=== PATIENT | male | born 1970 | race Two or more races ===

== ENCOUNTER 2022-04-02 10:11 | Emergency (ER) | payer BC, SELFPAY ==
[2022-04-02 10:46] VITALS: BP 125/84; PULSE 78; RESP 20; TEMP 36.4; O2SAT 100
--- NOTE | 2022-04-02 11:14 | ED.GENADULT ---
HPI - General Adult General Chief complaint: Upper Respiratory Infection Stated complaint: cough History of Present Illness HPI narrative: Patient is a 51-year-old male who presents to the [facility] via POV for evaluation of upper respiratory symptoms that began 2 days ago. Additionally, he reports sore throat, runny eyes, and dry cough. Symptoms improved with Visine, saltwater gargles, cough syrup. Symptoms worsened at night. Denies known exposure to sick contacts. Patient has a history of allergic rhinitis although allergies are usually more prominent in the springtime. He takes Lacey but only in springtime. Related Data Home Medications Medication Instructions Recorded Confirmed No Home Medications 04/02/22 04/02/22 Allergies Allergy/AdvReac Type Severity Reaction Status Date / Time No Known Allergies Allergy Verified 04/02/22 10:47 Review of Systems Review of Systems: Denies fever, chills, sweats, change in appetite, poor p.o. intake, headaches, sinus problems, rhinorrhea, drooling, difficulty swallowing, voice changes, dizziness, ear problems, abdominal pain, nausea, vomiting, diarrhea, chest pain, Heart palpitations, wheezing, cyanosis, and hemoptysis. PMFSH Comments I have reviewed and agree with the patient's past medical, surgical, social, and family hx as documented by the RN. There is no relevant family history pertinent to the presenting complaint. Exam Narrative: GENERAL: Well-appearing, well-nourished, and in no acute distress. HEAD: Normocephalic, atraumatic. No sinus tenderness or facial swelling appreciated. EYES: PERRLA and EOMI. No evidence of erythema, swelling, or drainage. ENT: Bilateral external ears and ear canals normal. Bilateral TMs are normal.No TM perforation. Nares clear, no rhinorrhea or epistaxis. Bilateral turbinates without erythema/ swelling. Mucous membranes moist and pink. Uvula is midline without erythema and swelling. POSTERIOR PHARYNX IS MARKEDLY ERYTHEMATOUS WITH A MODERATE AMOUNT OF POSTNASAL DRIP APPRECIATED. Breath odor and voice normal. NECK: Supple. No Lymphadenopathy or nuchal rigidity appreciated. CHEST: Bilateral lung alcantar are clear to auscultation. No respiratory distress. No evidence of pleuritic cp upon examination. MILD DRY COUGH APPRECIATED UPON EXAMINATION. HEART: Regular rate and rhythm. No murmur, gallop, or rub heard. EXTREMITIES: Normal range of motion. No edema. SKIN: Warm, dry, no rash. NEURO: No focal deficits. Alert and oriented x3. Course Course Level of Care: Express Care Visit Vital Signs Vital signs: Vital Signs Temperature 97.6 F 04/02/22 10:46 Pulse Rate 78 04/02/22 10:46 Respiratory Rate 20 04/02/22 10:46 Blood Pressure 125/84 04/02/22 10:46 Pulse Oximetry 100 04/02/22 10:46 Oxygen Delivery Room Air 04/02/22 10:46 Temperature 97.6 F 04/02/22 10:46 Pulse Rate 78 04/02/22 10:46 Respiratory Rate 20 04/02/22 10:46 Blood Pressure 125/84 04/02/22 10:46 Pulse Oximetry 100 04/02/22 10:46 Oxygen Delivery Room Air 04/02/22 10:46 Medical Decision Making Differential Diagnosis Differential Diagnosis: allergic rhinitis, ABRS, acute viral sinusitis, strep pharyngitis, nasopharyngitis, bronchitis, pneumonia, AOM, otitis externa, viral URI, influenza, covid-19 Vital Signs Vital Signs: Vital Signs Temperature 97.6 F 04/02/22 10:46 Pulse Rate 78 04/02/22 10:46 Respiratory Rate 20 04/02/22 10:46 Blood Pressure 125/84 04/02/22 10:46 Pulse Oximetry 100 04/02/22 10:46 Oxygen Delivery Room Air 04/02/22 10:46 Temperature 97.6 F 04/02/22 10:46 Pulse Rate 78 04/02/22 10:46 Respiratory Rate 20 04/02/22 10:46 Blood Pressure 125/84 04/02/22 10:46 Pulse Oximetry 100 04/02/22 10:46 Oxygen Delivery Room Air 04/02/22 10:46 reviewed Critical Care Time Critical Care Time Critical Care Time: No Discharge Plan Discharge Clinical Impres
== END 2022-04-02 11:25 | disposition home or self-care (01) ==
PROVIDERS: Emergency Provider Nurse Practitioner Family
DX: J30.9 Allergic rhinitis, unspecified (principal)
CPT/HCPCS: 99211; G0463

== ENCOUNTER 2023-05-28 09:57 | Emergency (ER) | payer BC, SELFPAY ==
[2023-05-28 10:26] VITALS: BP 144/70; PULSE 88; RESP 16; TEMP 36.1; O2SAT 100
--- NOTE | 2023-05-28 11:12 | ED.SKABFB ---
HPI - Skin/Abscess/Foreign Bdy General Chief complaint: Skin/Abscess/Foreign Body Stated complaint: Nose Irritation Time Seen by Provider: 05/28/23 10:00 Source: patient Mode of arrival: ambulatory Limitations: no limitations History of Present Illness HPI narrative: 52-year-old male presents to [facility] complains of area of redness and swelling to his inner right nare for the past 2 weeks. Patient reports that he has now noticed redness to his outer nose and pain to his outer nose for the past 2 days. Patient denies fever, body aches, chills, nausea vomiting or diarrhea. Patient has been applying [id number] coconut oil with little relief. MD complaint: other (area of redness and swelling ) Onset (ago): week(s) (2) Associated symptoms: denies other symptoms Treatments prior to arrival: other (Coconut oil) Related Data Allergies Allergy/AdvReac Type Severity Reaction Status Date / Time No Known Allergies Allergy Verified 05/28/23 10:46 Review of Systems Constitutional: Constitutional: Denies chills, Denies fatigue, Denies fever(s) and Denies weakness ENT: Denies epistaxis, Denies nasal congestion and Denies sore throat Comments: Area of redness and swelling to right inner nare Respiratory: Respiratory: Denies cough Gastrointestinal: Gastrointestinal: Denies diarrhea, Denies nausea and Denies vomiting Musculoskeletal: Musculoskeletal: Denies arthralgias and Denies joint swelling Integumentary/Breasts: Skin/Breast: Reports erythema, Denies rash and Denies skin ulcer PMFSH Comments At time of signature, I agree with nursing past medical, surgical, social and family history. There is no relevant family history pertinent to the presenting complaint. Exam Const: General: healthy appearing and no acute distress Nutritional Appearance: well nourished Orientation/consciousness: patient oriented x3 Limitations: no limitations HENMT: Head: normal to inspection Ears: external ears normal, TM's normal bilaterally and EAC's normal Other: Minimal erythema noted to outer nose. No obvious swelling noted to outer nose. There is no open wounds or bruising noted. There is small area of swelling noted to right inner nare noted No obvious abscesses noted. Eyes: Conjunctivae: conjunctivae normal Neck: Neck: normal visual inspection Resp: Effort & Inspection: normal respiratory effort and not labored Auscultation: clear to auscultation bilaterally, no crackles, no rales and no rhonchi Cardio: Rate: regular rate Rhythm: regular rhythm Heart sounds: no murmurs Skin: Wounds: no wounds Other: please see ENT section of chart; area of erythema noted to outer nose Neuro: General: patient oriented x3 Speech: normal speech Gait exam (Neuro): Normal gait present Psych: Affect: normal affect Attitude: cooperative Course Course Level of Care: Express Care Visit Vital Signs Vital signs: Vital Signs Temperature 36.1 C L 05/28/23 10:26 Pulse Rate 88 05/28/23 10:26 Respiratory Rate 16 05/28/23 10:26 Blood Pressure 144/70 H 05/28/23 10:26 Pulse Oximetry 100 05/28/23 10:26 Oxygen Delivery Room Air 05/28/23 10:26 Temperature 36.1 C L 05/28/23 10:26 Pulse Rate 88 05/28/23 10:26 Respiratory Rate 16 05/28/23 10:26 Blood Pressure 144/70 H 05/28/23 10:26 Pulse Oximetry 100 05/28/23 10:26 Oxygen Delivery Room Air 05/28/23 10:26 MDM - Skin/Abscess/Foreign Bdy MDM Narrative Medical decision making narrative: Will treat patient with oral antibiotic as well as topical antibiotic ointment. Patient understands importance of monitoring symptoms very closely and agrees to proceed to the emergency room if symptoms worsen. Differential Diagnosis Differential diagnosis: Likely abscess of skin or subcutaneous tissue, dermatophytosis and urticaria Critical Care Time Critical Care Time Critical Care Time: No Discharge Plan Discharge Clinical Impression: Cellulitis
== END 2023-05-28 11:19 | disposition home or self-care (01) ==
PROVIDERS: Emergency Provider Nurse Practitioner Family
DX: J34.0 Abscess, furuncle and carbuncle of nose (principal)
CPT/HCPCS: 99213; G0463

== ENCOUNTER 2023-09-19 15:17 | Emergency (ER) | payer OTHER, SELFPAY ==
--- NOTE | 2023-09-19 15:24 | ED.URI ---
HPI - URI/Sore Throat General Chief Complaint: Upper Respiratory Infection Stated Complaint: throat pain,cough Time Seen by Provider: 09/19/23 15:30 Source: patient, RN notes reviewed and old records reviewed Mode of arrival: ambulatory Limitations: no limitations History of Present Illness HPI Narrative: 52-year-old male presents to the [facility] with complaints of 5 days of a scratchy throat, has moved into his nose, reports a dry cough. Denies fevers, denies pain. To get at home COVID test 2 days ago which he reports is negative. Denies any other symptoms Has taken delsym Related Data Home Medications Medication Instructions Recorded Confirmed No Home Medications 09/19/23 09/19/23 Allergies Allergy/AdvReac Type Severity Reaction Status Date / Time No Known Allergies Allergy Verified 09/19/23 15:26 Review of Systems Review of Systems: All systems reviewed & are unremarkable except as noted in HPI and below Constitutional: Constitutional: Reports no additional constitutional complaints Eyes: Eyes: Reports no additional eye complaints ENT: Reports as per HPI and Reports sore throat Cardiovascular: Cardiovascular: Reports no additional cardiovascular complaints, Denies chest pain and Denies dyspnea Respiratory: Respiratory: Denies chest congestion, Reports cough and Denies dyspnea Gastrointestinal: Gastrointestinal: Reports no additional gastrointestinal complaints, Denies abdominal pain, Denies nausea and Denies vomiting Musculoskeletal: Musculoskeletal: Reports no additional musculoskeletal complaints Integumentary/Breasts: Skin/Breast: Reports system reviewed and no additional complaints, except as docu Neurologic: Reports system reviewed and no additional complaints, except as documented Psychiatric: Psychiatric: Reports no additional psychiatric complaints Allergic/Immunologic: Allergic/Immunologic: Reports no additional allergic/immunologic complaints PMFSH Comments At the time of my signature, I reviewed and agree with the nursing past medical, surgical, social, and family history. There is no relevant family history pertinent to the patient complaint. Exam Const: General: cooperative, healthy appearing, comfortable, no acute distress, well developed, alert and well nourished Nutritional Appearance: well nourished Orientation/consciousness: patient oriented x3 Limitations: no limitations HENMT: Head: normal to inspection Ears: hearing grossly normal bilaterally, external ears normal, TM's normal bilaterally, EAC's normal, mastoids normal and no periauricular adenopathy Face/Nose/Sinus: Normal external nose present, Normal nares present, Normal nasal mucous membranes and turbinates present, normal facial exam and face symmetric Face and sinus: normal facial exam and face symmetric Mouth: Yes Normal oral and palatal mucosa present, Yes lip normal and Yes moist mucous membranes Throat: posterior oropharynx normal, tonsils normal, uvula midline and no uvular edema Eyes: General: appearance normal, both eyes and all related structures Alignment and Position: alignment normal Periorbital: periorbital findings normal Pupils: Equal, round and reactive pupils present EOM: EOMs intact bilaterally Neck: Neck: normal visual inspection, full ROM, no lymphadenopathy and no meningeal signs Chest: Chest palpation & inspection: normal inspection of the chest Resp: Effort & Inspection: normal respiratory effort and able to speak in complete sentences Auscultation: clear to auscultation bilaterally, no crackles, no rales, no rhonchi and no wheezes Cardio: Rate: regular rate Rhythm: regular rhythm Back/Spine/Pelvis: Cervical Spine: cervical ROM normal Skin: General skin exam: normal color and no rashes or lesions noted Lesions: no lesions Rashes: no rashes Wounds: no wounds Neuro: General: patient oriented x3, gait normal, tone normal, moves all extremities and no meningeal signs Cranial nerves: Y
[2023-09-19 15:32] VITALS: BP 133/81; PULSE 75; RESP 16; TEMP 36.6; O2SAT 100
== END 2023-09-19 15:45 | disposition home or self-care (01) ==
PROVIDERS: Emergency Provider Nurse Practitioner
DX: J30.2 Other seasonal allergic rhinitis (principal); Z86.19 Personal history of other infectious and parasitic diseases
CPT/HCPCS: 99211; G0463